=== PATIENT | male | born 1940 | race Caucasian/White ===

== ENCOUNTER 2019-06-20 12:04 | Inpatient (IN) | payer OTHER ==
[2019-06-20 14:01] LABS: Absolute Lymphocytes (CBC) 0.7 K/uL (0.7-4.9); Basophils % 0.7 % (0-1.3); Hematocrit 49.6 % (39.6-49.0); Lymphocytes % 15.6 % (15.3-44.8); MPV 8.3 fL (7.6-11.3); RBC Red Blood Cell Count 4.91 M/uL (4.33-5.43)
[2019-06-20 14:25] LABS: C-Reactive Protein 71.9 mg/L (<3.00); Magnesium 2.1 mg/dL (1.8-2.4); Potassium 3.9 mmol/L (3.5-5.1); Protein, Total 7.3 g/dL (6.4-8.2)
[2019-06-20] MEDS ORDERED: VANCOMYCIN 2 GM in NA CHLORIDE 0.9% 500 ML IVPB ONE (15:00)
--- NOTE | 2019-06-20 15:05 | RAD REPORT ---
EXAM DESCRIPTION: RAD - Foot Right 3 View - 06/20/2019 2:28 pm CLINICAL HISTORY: Cellulitis, foot pain, possible osteomyelitis COMPARISON: May 03, 2019 FINDINGS: No acute fracture changes are present. No dislocation or periosteal reaction. Patient is f lexed at the IP joint of the first toe. Mild to moderate degenerative change present at the first MTP joint. Prominent spurring seen at the Achilles attachment to the calcaneus. Arterial calcifications are present. Soft tissue swelling is present. No acute or destructive bone process that would suspect osteomyelitis. No air or foreign body in the soft tissues. IMPRESSION: Soft tissue swelling without air or foreign body in the soft tissues. No destructive bone process seen. Osteomyelitis can exist prior to radiographic bone destruction.
[2019-06-20 15:15] VITALS: BMI 34.4
[2019-06-20] MEDS: CEFTRIAXONE/SWI 1gm 1 GM/10 ML SYR IV SCH ×2 (15:19→23:15)
[2019-06-20] MEDS ORDERED: VANCOMYCIN/NS 1 gm 1 GM/250 ML BAG IVPB SCH (16:00)
--- NOTE | 2019-06-20 17:30 | RAD REPORT ---
EXAM DESCRIPTION: MRI - Foot Right Wo Cont - 06/20/2019 4:53 pm CLINICAL HISTORY: cellulitis, r/o osteomyelitis Open soft tissue wound COMPARISON: MRI FOOT RT W WO CON dated 10/13/2012; Foot Right 3 View dated 06/20/2019 FINDINGS: Skin thickening with subcutaneous edema and soft tissue swelling is seen along the plantar aspect of the great toe. The very distal tip of the great toe shows subtle early findings of T1 guerrero ow replacement and subtle edema on the T2 weighted sequence suggesting a very early findings of osteo myelitis. No fracture seen. No drainable fluid collection. Degenerative subchondral cyst is seen joao g plantar aspect of the first metatarsal head. IMPRESSION: Very early findings of osteomyelitis distal phalanx of the great toe noted.
[2019-06-20] MEDS ORDERED: INFLUENZA VACCINE (for 3y+) 0.5 ML DOSE IMVAC ONE (18:00)
[2019-06-20] MEDS ORDERED: COLCHICINE 0.6 MG TAB PO PRN (18:37)
[2019-06-20] MEDS ORDERED: clonazePAM 1 MG TAB PO PRN (18:37)
[2019-06-20] MEDS: BRINZOLAMIDE EACH EYE SCH (21:00)
[2019-06-20] MEDS: BRIMONIDINE TART EACH EYE SCH (21:00)
[2019-06-20] MEDS: GEMFIBROZIL 600 MG TAB PO SCH (21:00)
[2019-06-20] MEDS ORDERED: TAMSULOSIN 0.4 MG SR CAP PO SCH (21:00)
[2019-06-20] MEDS ORDERED: BIMATOPROST OPHTH DROPS/2.5 ML BTL OPTH SCH (21:00)
[2019-06-20] MEDS: CLONIDINE HCL 0.3 MG TAB PO SCH (21:00)
[2019-06-20] MEDS: CARVEDILOL 25 MG TAB PO SCH (21:00)
--- NOTE | 2019-06-21 05:12 | HP ---
Date of Admission: 06/20/2019 Chief Complaint: Right foot redness and swelling and pain. History Of Present Illness: This is a 78-year-old male patient, who came into office with 2-3 days' history of some pain in right foot, redness, and swelling of the right foot and right great toe and s ome foul smelling discharge from distal part of the right foot great toe. Denies any fever, chills, nausea, vomiting. After he was evaluated in the office, decision was made to admit him to the hospit al. Denies any fall or injury. Patient had cellulitis of this right foot great toe maybe about a mo nth ago or so and it was treated with oral antibiotics. He did have osteomyelitis of this foot invol ving the great toe about 5-6 years ago. At that time, he was treated with conservative medical treat ment, which was IV antibiotic therapy. Review of Systems: Musculoskeletal: As mentioned above. Constitutional: Fatigue. Dermatology: As mentioned above. All other systems reviewed and negative. Past Medical History: Significant for sleep apnea, hypertension, testicular hypofunction, insomnia, depression, hypertension, mixed hyperlipidemia, gout, gastroesophageal reflux disease, diverticulosis , benign prostatic hypertrophy, pancytopenia, and impaired fasting glucose. Past Surgical History: Appendectomy. Allergies: NO KNOWN ALLERGIES. Medications: List reviewed. Family History: Mother, Alzheimer's. Father, unknown type of cancer. Social History: Negative for smoking or alcohol use. Physical Examination: Vital Signs: Initial temperature 97.1, pulse 74, respiratory rate 18, blood pressure 93/60, oxygen s aturation 96%. Height 6 feet 1 inch, weight 261 pounds. General: Awake, alert, oriented, not in distress. HEENT: Head atraumatic, normocephalic. Conjunctivae nonerythematous. Sclerae white. Mouth, no thr ush or edema noted. Ears/Nose, no mass, lesion, discharge noted. Neck: Supple. No JVD, lymph nodes, bruit, thyromegaly noted. Lungs: Bilateral good equal air entry. Clear to auscultation. No rhonchi. No rales. Heart: Normal heart sounds, no murmur or gallop. Abdomen: Soft, bowel sounds normal. No guarding, rigidity, tenderness, mass, hepatosplenomegaly, dis tention, or bruit noted. Extremities: Right foot distal dorsum foot has pink and warm skin and right foot entire great toe is swollen with pink and warm skin. Plantar aspect of the great toe has small round open area with fou l smell. No discharge or bleeding noted when I examined him. Skin: No rash, ulcer, cellulitis. Lymphatics: No lymph node enlargement in neck, supraclavicular, infraclavicular region. Neuro: No focal neurological deficit. Chest: Unremarkable. External Genitalia: Deferred. Rectal: Deferred. Laboratory Data: White count 4.8, hemoglobin 17, platelets 120. Sodium 139, potassium 3.9, chloride 105, bicarb 27, BUN 18, creatinine 1.55, glucose 99. Liver function tests unremarkable. CRP 71.90. Procalcitonin 0.16. Sedimentation rate 1. X-ray of the right foot shows soft tissue swelling with out air or foreign body, no acute bony findings. MRI of the right foot shows very early findings of osteomyelitis involving distal phalanx of right great toe. Impression: 1.Osteomyelitis, right foot great toe, acute. 2.Hypertension. 3.Mixed hyperlipidemia. 4.Impaired fasting glucose. 5.Testicular hypofunction. 6.Obstructive sleep apnea. 7.Depression. 8.Gout. 9.Thrombocytopenia. 10.Benign prostatic hypertrophy. Plan: Admit patient to hospital for further evaluation and management of this problem. Patient is a ppropriate for inpatient and is expected to spend 2 midnights in hospital. We will go ahead and cont inue home medications per order. Empiric antibiotic, ceftriaxone, and vancomycin will be started. Maria R aguerolow up on wound culture. Consult general surgeon. We will order PICC line, and tomorrow we will o [facility] [place] [facility] consult for home IV antibiotics for 6 weeks. Final decision on choice of antibio tic will depend on culture results. Details and plan of treatment discussed with the patient and glen wright. We will start DVT prophylaxis using Lovenox per order. MIKE/MODL Voice ID: [id number]
--- NOTE | 2019-06-21 06:12 | EKG ---
Test Date: 2019-06-20 Test Time: 15:18:33 Museum Registrar: AG/S MEASUREMENT RESULTS: Intervals: Rate: 69 AR: QRSD: 78 QT: 408 QTc: 437 [place]: P: 258 AR: QRS: 29 T: 16 INTERPRETIVE STATEMENTS: Atrial flutter with variable AV block Cannot rule out Inferior infarct, age undetermined Abnormal ECG Compared to ECG 10/15/2014 22:42:34 Myocardial infarct finding now present Sinus rhythm no longer present Electronically Signed On 06-21-19 06:11:55 CDT by Gentry Cowart
[2019-06-21 08:00] LABS: Magnesium 2.1 mg/dL (1.8-2.4); Potassium 4.2 mmol/L (3.5-5.1)
[2019-06-21] MEDS: CEFTRIAXONE/SWI 1gm 1 GM/10 ML SYR IV SCH ×2 (08:41→21:42)
[2019-06-21] MEDS: ENOXAPARIN 40 MG/0.4 ML SQ SCH (08:41)
[2019-06-21] MEDS: BRIMONIDINE TART EACH EYE SCH ×2 (08:42→21:00)
[2019-06-21] MEDS: BRINZOLAMIDE EACH EYE SCH ×2 (08:42→21:00)
[2019-06-21] MEDS: CLONIDINE HCL 0.3 MG TAB PO SCH ×2 (08:42→21:42)
[2019-06-21] MEDS: CARVEDILOL 25 MG TAB PO SCH ×2 (08:42→21:42)
[2019-06-21] MEDS: Levomefolate/Algal Oil [Deplin-Algal Oil 15 Mg Capsule] PO SCH (08:49)
[2019-06-21] MEDS: GEMFIBROZIL 600 MG TAB PO SCH ×2 (08:49→21:42)
[2019-06-21] MEDS ORDERED: LISINOPRIL 5 MG TAB PO SCH ×2 (09:00)
[2019-06-21] MEDS ORDERED: hydroCHLOROthiazide 12.5 MG CAP PO SCH (09:00)
[2019-06-21] MEDS ORDERED: lamoTRIgine 150 MG TAB PO SCH (09:00)
[2019-06-21] MEDS ORDERED: clonazePAM 0.5 MG TAB PO SCH (09:00)
[2019-06-21] MEDS ORDERED: lamoTRIgine 100 MG TAB PO SCH (09:00)
[2019-06-21] MEDS ORDERED: ALLOPURINOL 100 MG TAB PO SCH (09:00)
[2019-06-21] MEDS ORDERED: SERTRALINE HCL 100 MG TAB PO SCH (09:00)
[2019-06-21] MEDS: COLLAGENASE 30 GM OINTMENT TOP SCH (13:45)
--- NOTE | 2019-06-21 14:23 | RAD REPORT ---
EXAM DESCRIPTION: CHEST 1 VIEW CLINICAL HISTORY: PICC Placement. COMPARISON: None. FINDINGS: The heart size is within normal limits. No consolidation, pleural effusion, or pneumothora x is seen. The bony thorax is intact. There is a right upper extremity PICC with the tip in the SVC. IMPRESSION: Right upper extremity PICC with the tip in the SVC. No pneumothorax. Electronically signed by: Linwood Drew MD 06/20/2019 11:59 PM CDT Due to temporary technical issues with the PACS/Fluency reporting system, reports are being signed by the in house radiologist as a courtesy to ensure prompt reporting. The interpreting radiologist is f ully responsible for the content of the report.
--- NOTE | 2019-06-21 14:36 | CON ---
Date of Consultation: 06/21/2019 Reason For Consultation: Infected wound, right great toe with osteomyelitis. History Of Present Illness: The patient is a 78-year-old gentleman, came to Dr. Lazar's office yester day with right foot redness and swelling of the great toe, some foul smelling discharge, was admitted , workup was done. He does have acute osteomyelitis and cellulitis and I was consulted. He has mini mal drainage from the wound. It is foul smelling. He has had similar problems in the past and was t reated for osteo with IV antibiotics and resolved. No sore throat, runny nose, cough, headaches, or dizziness. No chest pain. No fever or chills. Review of Systems: Otherwise unremarkable. Past Medical History: Significant for sleep apnea, hypertension, insomnia, depression, GERD, diverti culosis, BPH, impaired fasting glucose, pancytopenia. Past Surgical History: Appendectomy. Allergies: NO ALLERGIES. Social History: He does not smoke or drink. Family History: Significant for Alzheimer's in the mother and cancer of unknown type in father. Physical Examination: Vital Signs: Stable. He is afebrile. General: He is awake, alert, and oriented x3. Head and Neck: Cranial nerves 2 through 12 grossly within normal limits. No neck masses. No JVD. Throat clear. Neck supple. Chest: Clear. Heart: S1, S2. Abdomen: Soft. Extremities: Palpable dorsalis pedis and posterior tibial pulses. On the right great toe, there is a partial thickness wound that needs debridement. It appears there is fluid trapped. The toe itself is swollen and red down to the base of the toe. There is no purulent discharge, but there is odor p resent. Procedure Note: Under clean conditions, an 11 scalpel blade was used to debride approximately 2 x 3 cm area of partial thickness skin that was covering the wound. Wound is stage 3 ulcer down through t he subcutaneous tissue. There is no purulence. There is no abscess underneath it. The patient tole rated the procedure in stable condition. Laboratory Data: White count is 4.8, sedimentation rate is 1, C-reactive protein is 71.9. MRI and f oot x-ray reviewed, consistent with early osteomyelitis. Assessment: A 78-year-old gentleman with osteo, wound, cellulitis, right great toe. Recommendations: PICC line 6 weeks IV antibiotics. Collagenase dressing. Follow up in [facility]. Cleared from [facility] for discharge. GLENNA/DEVON Voice ID: [id number] Report ID: [id number]
[2019-06-21] MEDS ORDERED: clonazePAM 1 MG TAB PO PRN (16:01)
[2019-06-21] MEDS: VANCOMYCIN 2 GM in NA CHLORIDE 0.9% 500 ML IVPB SCH (16:02)
[2019-06-21] MEDS: LAMOTRIGINE 200 MG PO SCH (22:24)
[2019-06-21] MEDS: SERTRALINE HCL 100 MG TAB PO SCH (22:25)
[2019-06-21] MEDS: TAMSULOSIN 0.4 MG SR CAP PO SCH (22:25)
--- NOTE | 2019-06-22 00:49 | PN ---
Date of Progress Note: 06/21/2019 Subjective: Patient was seen this morning for followup. He was sitting in the chair, did not sleep well last night because of uncomfortable bed, but no other complaints reported. Objective: Vital Signs: Reviewed. HEENT: Unremarkable. Lungs: Clear to auscultation. Heart: Sounds normal. Abdomen: Soft. Bowel sounds normal. No guarding, rigidity, tenderness, or distention. Extremities: No leg edema. Impression: 1.Osteomyelitis, right foot. 2.Hypertension. Plan: We will continue current medication. Continue ceftriaxone, vancomycin. Patient has a PICC li ne in place in right arm, which was placed last night. We will have Social Service help make arrange ments for home IV antibiotic for 6 weeks using ceftriaxone and vancomycin. Details were discussed wi Dr. Henao. He did a bedside debridement today and he did not notice any purulent discharge or any evidence of any fluid collection, like abscess and he agrees with the treatment plan and he will see patient on outpatient basis. Possible discharge to go home tomorrow if arrangements get completed b y Social and family. MIKE/MODL Voice ID: [id number] Report ID: [id number]
[2019-06-22] MEDS: ENOXAPARIN 40 MG/0.4 ML SQ SCH (08:19)
[2019-06-22] MEDS: CEFTRIAXONE/SWI 1gm 1 GM/10 ML SYR IV SCH ×2 (08:20→20:23)
[2019-06-22] MEDS: BRIMONIDINE TART EACH EYE SCH ×2 (08:22→20:26)
[2019-06-22] MEDS: SERTRALINE HCL 100 MG TAB PO SCH (08:22)
[2019-06-22] MEDS: LAMOTRIGINE 200 MG PO SCH (08:22)
[2019-06-22] MEDS: GEMFIBROZIL 600 MG TAB PO SCH ×2 (08:22→20:26)
[2019-06-22] MEDS: BRINZOLAMIDE EACH EYE SCH ×2 (08:22→20:26)
[2019-06-22] MEDS: CARVEDILOL 25 MG TAB PO SCH ×2 (08:23→20:26)
[2019-06-22] MEDS: TAMSULOSIN 0.4 MG SR CAP PO SCH (08:23)
[2019-06-22] MEDS: CLONIDINE HCL 0.3 MG TAB PO SCH ×2 (08:23→20:25)
[2019-06-22] MEDS: LISINOPRIL HCTZ PO SCH (08:23)
[2019-06-22] MEDS: Levomefolate/Algal Oil [Deplin-Algal Oil 15 Mg Capsule] PO SCH (08:24)
[2019-06-22] MEDS: ALLOPURINOL 100 MG TAB PO SCH (08:24)
[2019-06-22] MEDS: COLLAGENASE 30 GM OINTMENT TOP SCH (08:27)
[2019-06-22] MEDS ORDERED: lamoTRIgine 150 MG TAB PO SCH (09:00)
[2019-06-22] MEDS ORDERED: lamoTRIgine 100 MG TAB PO SCH (09:00)
[2019-06-22] MEDS: clonazePAM 1 MG TAB PO SCH (09:12)
[2019-06-22] MEDS ORDERED: VANCOMYCIN 2.25 GM in NA CHLORIDE 0.9% 500 ML IVPB SCH (15:00)
[2019-06-22] MEDS: VANCOMYCIN 2 GM in NA CHLORIDE 0.9% 500 ML IVPB SCH (15:03)
--- NOTE | 2019-06-23 00:26 | PN ---
Date of Progress Note: 06/22/2019 History Of Present Illness: Patient was seen this morning for followup. No new complaints or proble ms reported. Physical Examination: Vital Signs: Reviewed. HEENT: Unremarkable. Lungs: Clear to auscultation. Heart: Sounds normal. Abdomen: Soft. Bowel sounds normal. No guarding, rigidity, tenderness, or distention. Extremities: No leg edema. Right foot examination shows redness from right dorsum distal foot has i mproved. Redness from right great toe has remained unchanged. Impression: 1.Right foot great toe osteomyelitis. 2.Hypertension. 3.Mixed hyperlipidemia. Plan: We will continue current medication. Continue current antibiotic, which is vancomycin and cef triaxone. Culture result is pending. Patient has a PICC line PICC line in place. Social Service is assisting with arrangements for patient to get IV antibiotics for 6 weeks at home. Once arrangement s gets completed, we will plan to discharge him, which hopefully might be tomorrow. MIKE/DEVON Voice ID: [id number] Report ID: [id number]
[2019-06-23] MEDS: BRINZOLAMIDE EACH EYE SCH ×2 (08:25→19:18)
[2019-06-23] MEDS: BRIMONIDINE TART EACH EYE SCH ×2 (08:25→19:18)
[2019-06-23] MEDS: ENOXAPARIN 40 MG/0.4 ML SQ SCH (08:26)
[2019-06-23] MEDS: CARVEDILOL 25 MG TAB PO SCH ×2 (08:27→20:18)
[2019-06-23] MEDS: CLONIDINE HCL 0.3 MG TAB PO SCH ×2 (08:27→20:19)
[2019-06-23] MEDS: ALLOPURINOL 100 MG TAB PO SCH (08:27)
[2019-06-23] MEDS: Levomefolate/Algal Oil [Deplin-Algal Oil 15 Mg Capsule] PO SCH (08:28)
[2019-06-23] MEDS: LISINOPRIL HCTZ PO SCH (08:28)
[2019-06-23] MEDS: LAMOTRIGINE 200 MG PO SCH (08:29)
[2019-06-23] MEDS: SERTRALINE HCL 100 MG TAB PO SCH (08:29)
[2019-06-23] MEDS: TAMSULOSIN 0.4 MG SR CAP PO SCH (08:29)
[2019-06-23] MEDS: clonazePAM 1 MG TAB PO SCH (08:36)
[2019-06-23] MEDS: GEMFIBROZIL 600 MG TAB PO SCH ×2 (08:39→20:17)
[2019-06-23] MEDS: COLLAGENASE 30 GM OINTMENT TOP SCH (09:00)
[2019-06-23] MEDS ORDERED: VANCOMYCIN 2 GM in NA CHLORIDE 0.9% 500 ML IVPB SCH (09:00)
[2019-06-23] MEDS: Levofloxacin 750mg IV 750 MG/150 ML BAG IV SCH (09:23)
[2019-06-23 10:15] VITALS: O2SAT 94
--- NOTE | 2019-06-24 01:09 | PN ---
Date of Progress Note: 06/23/2019 Subjective: Patient was seen this morning for followup. No new complaints or problems reported by h im. Objective: Vital Signs: Reviewed. HEENT: Unremarkable. Lungs: Clear to auscultation. Heart: Sounds normal. Abdomen: Soft. Bowel sounds normal. No guarding, rigidity, tenderness, or distention. Extremities: No leg edema. Laboratory Data: Urine bacteria, one is pseudomonas, other one is providencia, both are sensitive to Levaquin. Impression: Acute osteomyelitis, right foot. Plan: We will go ahead and discontinue current antibiotic which is ceftriaxone and vancomycin and we will start culture specific antibiotic which is Levaquin 750 mg IV piggyback daily and I will see hi m tomorrow for followup and our plan is to possibly discharge him to go home tomorrow or day after to [place] on oral Levaquin 750 mg daily for about 6 weeks. I will see him tomorrow for followup. MIKE/DEVON Voice ID: [id number] Report ID: [id number]
--- NOTE | 2019-06-24 07:26 | EKG ---
Test Date: 2019-06-24 Test Time: 07:09:46 Software Testing Specialist: TRICE MEASUREMENT RESULTS: Intervals: Rate: 61 [place]: QRSD: 112 QT: 426 QTc: 428 [place]: P: 252 NV: QRS: 62 T: 10 INTERPRETIVE STATEMENTS: Atrial flutter with variable AV block Possible Inferior infarct, age undetermined Abnormal ECG Compared to ECG 06/20/2019 15:18:33 No significant changes Electronically Signed On 06-24-19 07:26:05 CDT by Gentry Cowart
[2019-06-24 07:43] LABS: Absolute Lymphocytes (CBC) 0.6 K/uL (0.7-4.9); Basophils % 0.6 % (0-1.3); Hematocrit 49.2 % (39.6-49.0); Lymphocytes % 13.9 % (15.3-44.8); MPV 8.3 fL (7.6-11.3); RBC Red Blood Cell Count 4.88 M/uL (4.33-5.43)
[2019-06-24 08:11] LABS: Thyroid Stimulating Hormone 3.61 uIU/mL (0.360-3.740)
[2019-06-24] MEDS: Levofloxacin 750mg IV 750 MG/150 ML BAG IV SCH (08:36)
[2019-06-24] MEDS: clonazePAM 1 MG TAB PO SCH (08:37)
[2019-06-24] MEDS: CLONIDINE HCL 0.3 MG TAB PO SCH (08:37)
[2019-06-24] MEDS: ALLOPURINOL 100 MG TAB PO SCH (08:38)
[2019-06-24] MEDS: CARVEDILOL 25 MG TAB PO SCH (08:38)
[2019-06-24] MEDS: GEMFIBROZIL 600 MG TAB PO SCH (08:38)
[2019-06-24] MEDS: Levomefolate/Algal Oil [Deplin-Algal Oil 15 Mg Capsule] PO SCH (08:39)
[2019-06-24] MEDS: LISINOPRIL HCTZ PO SCH (08:39)
[2019-06-24] MEDS: SERTRALINE HCL 100 MG TAB PO SCH (08:39)
[2019-06-24] MEDS: TAMSULOSIN 0.4 MG SR CAP PO SCH (08:39)
[2019-06-24] MEDS: LAMOTRIGINE 200 MG PO SCH (08:39)
[2019-06-24] MEDS: BRINZOLAMIDE EACH EYE SCH (08:40)
[2019-06-24] MEDS: BRIMONIDINE TART EACH EYE SCH (08:40)
[2019-06-24] MEDS: COLLAGENASE 30 GM OINTMENT TOP SCH (08:58)
[2019-06-24] MEDS ORDERED: APIXABAN 5 MG TABLET PO SCH (09:00)
[2019-06-24] MEDS ORDERED: FLECAINIDE 100 MG TAB PO SCH (09:00)
--- NOTE | 2019-06-24 11:10 | CON ---
History Of Present Illness: Mr. Ray is in the hospital because of his right great toe. It has been a problem for a couple of years. The wound that does not seem to heal, has very good pulses in his legs. Previous Doppler studies indicate he does not have this circulation and his right great t oe continues to be painful to him. It became more painful suddenly, so he came to the hospital. His initial EKG 4 days ago showing atrial flutter. He is not aware of having atrial flutter. Repeat EK G yesterday had confirmed and I am asked to consult about him. He is now on Eliquis. His heart rate has never been elevated. He does not feel his heart fluttering, does not notice anything unusual wi th his heart. Denies chest pain, shortness of breath, palpitations. Heart rate throughout the hospi talization has been in the 70s and 80s. He does not have diabetes, dyslipidemia. He has hypertensio n and some kind of an unusual infection on his toe. He takes bimatoprost, carvedilol, lamotrigine, g emfibrozil, clonidine, Flomax, sertraline, colchicine, allopurinol, Protonix, algal oil with Levomefo late, brinzolamide, lisinopril, clonazepam, testosterone gel. He did not use any tobacco since the . Alcohol use minimal. No illegal drugs. Physical Examination: Vital Signs: 6 feet 1, 261 pounds. General: Appears to be his stated age. Alert, oriented, pleasant, not in distress. Lungs: Clear. Heart: Little bit irregular, but for the most part, it is fairly regular. I think he is in 4:1 bloc k with his flutter. Abdomen: Soft. Extremities: Mild edema. Distal pulses are palpable. Skin: Color changes consistent with mild venous insufficiency. No ulcers. The right great toe has a lot of hyperkeratosis. There is 1 small darkened spot and the nail bed is overwhelmed with onychom ycosis. Impression: As the patient has intractable fungal infection causing his toe problem, he may be havin g emboli to the toe as well. I am not sure certainly the pulses in the major arteries are good, tova Ramírez is a good idea. He has been asymptomatic. I am not sure we should try to establish sinus rhythm. We have no idea, the last time he was in sinus rhythm. He is asymptomatic, just to see if it is easy to revert him to sinus, I will give him flecainide 50 mg twice a day for a few days. If i t causes any problems or does not work, we will discuss the pros and cons of trying a cardioversion f or next week. I think probably our best approach is anticoagulation and rate control. LILY/DEVON Voice ID: [id number] Report ID: [id number]
--- NOTE | 2019-06-24 11:26 | EKG ---
Test Date: 2019-06-24 Test Time: 07:23:27 Technical Spec: JACKIE MEASUREMENT RESULTS: Intervals: Rate: 67 DC: QRSD: 112 QT: 424 QTc: 448 [place]: P: 59 DC: QRS: 15 T: 22 INTERPRETIVE STATEMENTS: Atrial flutter with variable AV block Incomplete right bundle branch block Inferior infarct, age undetermined Abnormal ECG Compared to ECG 06/24/2019 07:09:46 Incomplete right bundle-branch block now present Myocardial infarct finding still present Electronically Signed On 06-24-19 11:24:54 CDT by Gentry Cowart
--- NOTE | 2019-06-24 11:28 | ECHO ---
HEIGHT: 6 ft 1 in WEIGHT: 261 lb 1 oz DATE OF STUDY: 06/24/[address]: Gabriel Lazar MD 2-DIMENSIONAL: YES M.MODE: YES DOPPLER: YES COLOR FLOW: YES TDS: PORTABLE: DEFINITY: BUBBLE STUDY: DIAGNOSIS: ATRIAL FLUTTER CARDIAC HISTORY: CATHERIZATION: NO SURGERY: NO PROSTHETIC VALVE: NO PACEMAKER: NO MEASUREMENTS (cm) DIASTOLIC (NORMALS) SYSTOLIC (NORMALS) IVSd 1.1 (0.6-1.2) LA Diam 3.4 (1.9-4.0) LVEF 75% LVIDd 4.9 (3.5-5.7) LVIDs 2.7 (2.0-3.5) %FS 44% LVPWd 1.2 (0.6-1.2) Ao Diam 3.3 (2.0-3.7) 2 DIMENSIONAL ASSESSMENT: RIGHT ATRIUM: NORMAL LEFT ATRIUM: NORMAL RIGHT VENTRICLE: NORMAL LEFT VENTRICLE: NORMAL TRICUSPID VALVE: NORMAL MITRAL VALVE: NORMAL PULMONIC VALVE: NORMAL AORTIC VALVE: NORMAL PERICARDIAL EFFUSION: NONE AORTIC ROOT: NORMAL LEFT VENTRICULAR WALL MOTION: NORMAL DOPPLER/COLOR FLOW: MILD TRICUSPID REGURGITATION. NORMAL RIGHT VENTRICULAR SYSTOLIC PRESSURE. COMMENTS: NORMAL 2-DIMENSIONAL ECHOCARDIOGRAM. MILD TRICUSPID REGURGITATION. TECHNOLOGIST: ELYSSA BARTHOLOMEW
[2019-06-24 12:58] VITALS: BP 137/85; TEMP 97.9
--- NOTE | 2019-06-24 21:46 | DS ---
Date of Discharge: 06/24/2019 Disposition: Discharged to go home. Physical Examination: HEENT: Unremarkable. Lungs: Clear to auscultation. Heart: Sounds normal. Abdomen: Soft. Bowel sounds normal. No guarding, rigidity, tenderness, or distention. Extremities: No leg edema. Right foot exam, redness and swelling from right dorsum foot has resolve d. Redness from right great toe is significantly better compared to the time of admission and the kath turpin had some soft tissue swelling of the right great toe which is significantly better to almost go ne. Hospital Course: A 78-year-old male patient admitted to hospital with redness of the right foot and right great toe and swelling. Please see dictated H and P for more information. Patient was seen at office and was concerned about osteomyelitis of this right foot. He had some foul odor, discharge f rom this very small opening, which may be about a millimeter to 2 mm size on the plantar aspect near the tip of right great toe. Wound culture was ordered after the patient was admitted to the hospital and Dr. Henao from General Surgery was consulted. X-ray of the foot was negative for any acute kirby ges, but MRI of the foot showed evidence of early osteomyelitis in the distal part of the right great toe distal phalanx. Initially, patient was started on empiric antibiotic which was ceftriaxone and vancomycin. Pharmacy was consulted for vancomycin management. Wound culture came back with 2 differ ent gram-negative rods, both are sensitive to Levaquin. At that point, we decided to discontinue cef triaxone and vancomycin and started him on Levaquin 750 mg IV piggyback daily. So, he received 1 dos e yesterday and second dose will be given today. Levaquin should work very well in oral tablet form just like IV form and has a very good bone penetration. All those details were discussed with the kath turpin today and plan IS to give him 4 to [address] oral Levaquin. Dr. Henao did a bedside debrideme nt and he will [facility]. He has advised collagenase dressing on a daily basis to the tip part of the right great toe. Patient's overall condition has improved s ignificantly. He was noted to have atrial flutter during this hospitalization, which was confirmed o n EKG and his heart rate is well controlled. Cardiology consultation was obtained from Dr. Cowart an d I did talk to him, explaining him details about osteomyelitis, requiring antibiotics for 4 to 6 wee ks and if possible would like to use Levaquin during that time for the treatment. So, if we can avoi d any antiarrhythmic medication like what Dr. Cowart was planning to give him was flecainide. There is interaction between flecainide or sotalol and Levaquin dose. So, we would like to avoid using tho se medications in combination. Considering his heart rate is well controlled, Dr. Cowart is okay for patient not to take any such antiarrhythmic medication at this point and our strategy will be to pro vide rate control and he is already taking carvedilol at home, which should continue to help him with rate control and anticoagulation therapy, Eliquis was started today 5 mg twice a day. All those det ails were discussed with the patient. I will see him at office for followup next week. Laboratory Data: Initial white count 4.8, hemoglobin 17, platelets 121. Repeat white count today 4. 6, hemoglobin 16.6, platelets 118. Last chemistry today, sodium 142, potassium 4, chloride 107, bica rb 29, BUN 19, creatinine 1.03, glucose 97, TSH 3.6, magnesium 2. Echo with Doppler done today. We will follow up on results on outpatient basis. Discharge Medications And Instructions: 1.Continue all prior home medications. 2.Do not take any aspirin, Aleve, Motrin type of medications. 3.Start Eliquis 5 mg 2 times a day and take it about 12 hours apart for example 9 a.m. and 9 p.m. 4.Take Levaquin 750 mg p.o. daily. 5.Daily dressing changes to right great toe with collagenase per instruction from Dr. Henao. 6.Follow up at my office next week. 7.Follow with [facility]. Final Diagnoses: 1.Acute osteomyelitis, right foot, great toe, organism gram-negative rods, pseudomonas. 2.Thrombocytopenia. 3.Atrial flutter. 4.Hypertension. 5.Mixed hyperlipidemia. 6.Impaired fasting glucose. 7.Testicular hypofunction. 8.Obstructive sleep apnea. 9.Depression. 10.Gout. 11.Benign prostatic hypertrophy. MIKE/MODL Voice ID: [id number] Report ID: [id number]
== END 2019-06-24 13:05 | disposition home or self-care (01) | DRG 540 ==
LOC: 4TH 12:53
PROVIDERS: ADMIT Internal Medicine; ATTEND Internal Medicine
DX: M86.171 Other acute osteomyelitis, right ankle and foot (principal); I48.92 Unspecified atrial flutter; B96.5 Pseudomonas (aeruginosa) (mallei) (pseudomallei) as the cause of diseases classified elsewhere; B96.89 Other specified bacterial agents as the cause of diseases classified elsewhere; D69.6 Thrombocytopenia, unspecified; I10 Essential (primary) hypertension; E78.2 Mixed hyperlipidemia; N40.0 Benign prostatic hyperplasia without lower urinary tract symptoms; G47.33 Obstructive sleep apnea (adult) (pediatric); F32.9 Major depressive disorder, single episode, unspecified; M10.9 Gout, unspecified; K57.90 Diverticulosis of intestine, part unspecified, without perforation or abscess without bleeding; K21.9 Gastro-esophageal reflux disease without esophagitis
CPT/HCPCS: 36415; 71045; 80048; 80053; 80202; 83735; 84145; 84443; 85025; 85652; 86140; 87070; 87077; 87186; 87205; 93005; 93306; J0696; J1650; J3590; J7040

== ENCOUNTER 2024-12-14 07:14 | Day surgery (SDC) | payer OTHER ==
--- NOTE | 2024-12-12 11:49 | RAD REPORT ---
Procedure: Chest Single View HISTORY: Preop. Shortness of breath COMPARISON: 2019 FINDINGS: Left lung base is hazy Remainder of the lungs appear clear of acute infiltrate. No significant pleural effusion noted. The heart is probably mildly enlarged IMPRESSION: Left base is hazy which may indicate a mild pneumonia.
[2024-12-12 11:53] LABS: Absolute Eosinophils 0.1 K/uL (0-0.5); Absolute Lymphocytes (CBC) 0.8 K/uL (0.7-4.9); Absolute Monocytes 0.4 K/uL (0.1-1.3); Absolute Neutrophil 3.4 K/uL (1.8-8.0); Basophils % 0.8 % (0-1.3); Eosinophils % 1.7 % (0-4.4); Hematocrit 41.9 % (39.6-49.0); Hemoglobin 14.6 g/dL (13.6-17.9); Lymphocytes % 17.2 % (15.3-44.8); MCH 34.8 pg (27.0-35.0); MCV 99.5 fL (80-100); MPV 7.8 fL (7.6-11.3); Monocytes % 7.9 % (3.3-12.3); Neutrophils % 72.4 % (41.7-73.7); Nucleated Red Blood Cells % 0.1 % (0-0); Platelets 133 thou/uL (152-406); RBC Red Blood Cell Count 4.21 M/uL (4.33-5.43); Red Cell Distribution Width 15.5 % (12.1-15.2)
[2024-12-12 12:08] LABS: Anion Gap 9.6 mEq/L (5.0-15.0); Potassium 3.6 mEq/L (3.5-5.1)
[2024-12-12 12:12] LABS: PT Prothrombin Time 13.9 SECONDS (10-13.0); Protime INR 1.23
--- NOTE | 2024-12-13 12:20 | EKG ---
Test Date: 2024-12-12 Test Time: 11:26:16 Supervisor Real Estate Office: CINDY MEASUREMENT RESULTS: Intervals: Rate: 73 [place]: QRSD: 76 QT: 390 QTc: 429 [place]: P: 263 [place]: QRS: -6 T: -14 INTERPRETIVE STATEMENTS: Atrial flutter Low voltage QRS Cannot rule out Anterior infarct, age undetermined Abnormal ECG Compared to ECG 06/24/2019 07:23:27 Low QRS voltage now present Incomplete right bundle-branch block no longer present Myocardial infarct finding still present Electronically Signed On 12-13-24 12:18:41 CDT by Dmitry Magana
[2024-12-14] MEDS ORDERED: NA CHLORIDE 0.9% 500 ML ONE (07:22)
[2024-12-14] MEDS ORDERED: LIDOCAINE 1% MPF 5 ML VIAL ONE (09:01)
[2024-12-14] MEDS ORDERED: propofoL 200 MG/20 ML VIAL IV ONE (09:01)
[2024-12-14 09:20] VITALS: TEMP 96.8
[2024-12-14 09:34] VITALS: O2SAT 95
[2024-12-14 10:05] VITALS: BP 124/77
--- NOTE | 2024-12-14 11:41 | TEE ---
TRANSESOPHAGEAL ECHOCARDIOGRAM REPORT CARDIOLOGY DEPARTMENT DATE OF STUDY: 12/14/2024 HEIGHT: 6'0" WEIGHT: 270 lbs DIAGNOSIS: ATRIAL FIBRILLATION RESIDENTIAL CAREGIVER COMMENTS: DEJA CARDIAC HISTORY: CATHERIZATION: SURGERY: PROSTHETIC VALVE: PACEMAKER: 2 DIMENSIONAL ASSESSMENT: RIGHT ATRIUM: LEFT ATRIUM: RIGHT VENTRICLE: LEFT VENTRICLE: TRICUSPID VALVE: MITRAL VALVE: PULMONIC VALVE: AORTIC VALVE: PERICARDIAL EFFUSION: AORTIC ROOT: EJECTION FRACTION: LEFT VENTRICULAR WALL MOTION: DOPPLER/COLOR FLOW: COMMENTS: 1. NORMAL LEFT ATRIAL APPENDAGE, NO CLOT TECHNOLOGIST: PABLO SHAH
--- NOTE | 2024-12-16 13:34 | EKG ---
Test Date: 2024-12-14 Test Time: 08:27:42 Hand Inspector: JACKIE MEASUREMENT RESULTS: Intervals: Rate: 65 KS: 216 QRSD: 76 QT: 442 QTc: 459 Humphrey: P: 7 KS: 216 QRS: 29 T: 31 INTERPRETIVE STATEMENTS: Sinus rhythm with 1st degree AV block Low voltage QRS Cannot rule out Anterior infarct, age undetermined Abnormal ECG Compared to ECG 12/12/2024 11:26:16 First degree AV block now present Atrial flutter no longer present Myocardial infarct finding still present Electronically Signed On 12-16-24 13:20:21 CDT by Dmitry Magana
== END 2024-12-14 10:00 | disposition home or self-care (01) ==
LOC: CCL 07:14
PROVIDERS: ATTEND Internal Medicine
DX: I48.11 Longstanding persistent atrial fibrillation (principal); I34.0 Nonrheumatic mitral (valve) insufficiency; I10 Essential (primary) hypertension; E78.2 Mixed hyperlipidemia; Z87.891 Personal history of nicotine dependence; Z79.899 Other long term (current) drug therapy
CPT/HCPCS: 93005 ×2; 93312; 85025; 80048; 36415; 85610; 85730; 71045; 92960; J2704; J2003; J7040; 01922